=== PATIENT | female | born 1990 | race Caucasian/White ===

== ENCOUNTER 2016-12-25 12:15 | Emergency (ER) | payer MEDICAID, OTHER | END 2016-12-25 14:12 | disposition left against medical advice (07) | LOC: ER 12:15 | DX: R10.9 Unspecified abdominal pain (principal); Z53.21 Procedure and treatment not carried out due to patient leaving prior to being seen by health care provider ==

== ENCOUNTER 2017-04-05 23:42 | Observation (INO) | payer MEDICAID ==
[~2017-04-05] VITALS: Ht 160 cm; Wt 6.4 kg
[2017-04-06] MEDS ORDERED: TERBUTALINE SULFATE 1 MG/ML 1ML VIAL SC ONE (00:33)
[2017-04-06] MEDS: TERBUTALINE SULFATE 1 MG/ML 1ML VIAL SC SCH ×3 (00:41→01:43)
[2017-04-06] MEDS ORDERED: LEVE500T22 PO (01:06)
[2017-04-06] MEDS ORDERED: BUSP10TA90 PO (01:12)
[2017-04-06] MEDS ORDERED: DIPH25CA66 PO (01:12)
[2017-04-06] MEDS ORDERED: FOLI1TAB6 PO (01:12)
[2017-04-06] MEDS ORDERED: FERR-7 PO (01:12)
[2017-04-06] MEDS ORDERED: DOCU-94 PO (01:12)
[2017-04-06] MEDS ORDERED: TRAM50TA2 PO (01:12)
[2017-04-06] MEDS ORDERED: CYCL1TAB18 PO (01:12)
[2017-04-06] MEDS ORDERED: PREN-96 PO (01:12)
[2017-04-06] MEDS ORDERED: FAM20T PO (01:12)
[2017-04-06 01:14] LABS: Urine Bacteria NONE SEEN /hpf (None Seen); Urine Blood Negative /uL (Negative); Urine Specific Gravity 1.004 (1.001-1.035); Urine WBC <1 /hpf (0 - 5)
[2017-04-06 01:23] LABS: Alcohol, Urine < 3.0 mg/dL (0-5); Amphetamine Screen, Urine POSITIVE (NEGATIVE); Barbiturate Scree,Urine NEGATIVE (NEGATIVE); Benzodiazephine Screen, Urine NEGATIVE (NEGATIVE); Cannabinoid Screen, Urine NEGATIVE (NEGATIVE); Cocaine Screen, Urine NEGATIVE (NEGATIVE); Opiate Scree,Urine NEGATIVE (NEGATIVE); Phencyclidine Screen, Urine NEGATIVE (NEGATIVE)
[2017-04-06] MEDS ORDERED: LACTATED RINGER'S 300 ML IV ONE (02:45)
== END 2017-04-06 02:43 | disposition home or self-care (01) | DRG 566 ==
LOC: LDRP 23:42
PROVIDERS: ADMIT Obstetrics & Gynecology; ATTEND Obstetrics & Gynecology
DX: O62.9 Abnormality of forces of labor, unspecified (principal); O21.2 Late vomiting of pregnancy; O26.893 Other specified pregnancy related conditions, third trimester; O46.93 Antepartum hemorrhage, unspecified, third trimester; R51 Headache; R56.9 Unspecified convulsions; H53.2 Diplopia; H53.8 Other visual disturbances; R03.0 Elevated blood-pressure reading, without diagnosis of hypertension; R10.9 Unspecified abdominal pain; M54.5 Low back pain; Z3A.28 28 weeks gestation of pregnancy
CPT/HCPCS: 59025; 76805; 80307; 81001; 81002; 96372; G0378; J3105; 96365

== ENCOUNTER 2018-02-10 14:13 | Emergency (ER) | payer MEDICAID ==
[~2018-02-10] VITALS: Ht 162.6 cm; Wt 72.6 kg
[~2018-02-10 14:13] MED LIST: BUSP10TA90 PO; CYCL1TAB18 PO; DIPH25CA66 PO; DOCU-94 PO; FAM20T PO; FERR-7 PO; FOLI1TAB6 PO; LEVE500T22 PO; PREN-96 PO; TRAM50TA2 PO
[2018-02-10 15:18] VITALS: BP 123/81
[2018-02-10 15:30] LABS: Urine Bacteria NONE SEEN /hpf (None Seen); Urine Blood Negative /uL (Negative); Urine Specific Gravity 1.003 (1.001-1.035); Urine WBC 1 /hpf (0 - 5)
== END 2018-02-10 17:01 | disposition home or self-care (01) ==
LOC: ER 14:17
DX: S70.01XA Contusion of right hip, initial encounter (principal); M19.90 Unspecified osteoarthritis, unspecified site; Z88.6 Allergy status to analgesic agent; Z88.8 Allergy status to other drugs, medicaments and biological substances; W10.9XXA Fall (on) (from) unspecified stairs and steps, initial encounter; Y93.89 Activity, other specified; Y99.8 Other external cause status; Y92.89 Other specified places as the place of occurrence of the external cause
CPT/HCPCS: 36415; 81001; 81025; 84702

== ENCOUNTER 2018-02-27 09:36 | Emergency (ER) | payer MEDICAID ==
[~2018-02-27] VITALS: Ht 162.6 cm; Wt 88.0 kg
[2018-02-27 10:22] LABS: Basophils # (auto) 0 uL; Basophils % (auto) 0.4 % (0.0-2.0); Eosinophils # (auto) 0.2 uL; Hemoglobin 13.4 g/dL (12.2-16.2); Lymphocytes # (auto) 0.9 uL; Lymphocytes % (auto) 13.7 % (10.0-50.0); Mean Corpuscular Hemoglobin 32.8 pg (28.0-32.0); Mean Corpuscular Hgb Conc. 35.4 g/dL (32.0-36.0); Mean Corpuscular Volume 92.6 fL (80.0-100.0); Monocytes # (auto) 0.4 uL; Neutrophils # (auto) 5.3 uL; Neutrophils % (auto) 76.9 % (37.0-80.0); Nucleated Red Blood Cells % 0.1 %; Platelet Count (auto) 161 10^3/uL (140-450); Red Cell Distribution Width 14.8 % (11.8-14.3); White Blood Cell 6.9 10^3/uL (4.4-10.8)
[2018-02-27 10:40] LABS: Calcium 8.6 mg/dL (8.5-10.1); Potassium 3.7 mmol/L (3.5-5.1)
[2018-02-27 10:44] LABS: Urine Bacteria FEW /hpf (None Seen); Urine Blood Negative /uL (Negative); Urine Mucus FEW (None Seen); Urine Specific Gravity 1.023 (1.001-1.035); Urine WBC 5 /hpf (0 - 5)
[2018-02-27 10:45] LABS: BUN/Creatinine Ratio 17.9; Bilirubin, Total 0.6 mg/dL (0.2-1.0); Total Protein 7.8 g/dL (6.4-8.2)
[2018-02-27] MEDS ORDERED: SODIUM CHLORIDE 0.9% 1,000 ML IV ONE (11:02)
[2018-02-27] MEDS ORDERED: KETOROLAC TROMETH 30 MG/ML 1ML VIAL IV ONE (11:15)
[2018-02-27 11:16] VITALS: BP 100/75
== END 2018-02-27 12:21 | disposition home or self-care (01) ==
LOC: ER 09:36
DX: O34.81 Maternal care for other abnormalities of pelvic organs, first trimester (principal); N83.209 Unspecified ovarian cyst, unspecified side; O21.9 Vomiting of pregnancy, unspecified; Z3A.01 Less than 8 weeks gestation of pregnancy
CPT/HCPCS: 36415; 80053; 81001; 84702; 85025; 94761; 96360; 99283; J7030; J1885